=== PATIENT | male | born 1990 | race Caucasian/White ===

== ENCOUNTER 2019-01-05 13:25 | Emergency (ER) | payer SELFPAY ==
[~2019-01-05] VITALS: Ht 182.9 cm; Wt 66.0 kg
[2019-01-05 13:45] VITALS: BP 112/60
== END 2019-01-05 17:29 | disposition left against medical advice (07) ==
LOC: ER 13:25
DX: R11.0 Nausea (principal); R20.2 Paresthesia of skin; Z53.21 Procedure and treatment not carried out due to patient leaving prior to being seen by health care provider